=== PATIENT | male | born 1940 | race Caucasian/White ===

== ENCOUNTER 2018-11-10 01:59 | Emergency (ER) | payer MEDICARE, OTHER ==
[~2018-11-10] VITALS: Wt 100.0 kg
[~2018-11-10 01:59] MED LIST: ALIGN PO; BENAZEPRIL PO; BYETTA 10M600 MCG/SY SQ; BYETTA SQ; CALCIUM CITRAT950 MG PO; CALCIUM CITRATE1 TA7 PO; CEPHALEXIN500 M1 PO; DITROPAN XL10 MG PO; FERROUS SU325 MG/TAB PO; FLUOXETINE PO; FOLIC ACID PO; FORTAMET500 M1 PO; FOSAMAX 70MG TA70 MG PO; GLUCOPHAGE1000 MG PO; KLOR-CON 1010 MEQ PO; LANTUS SOLOS100 U/ML SQ; LIPITOR20 MG PO; LOPRESSOR 550 MG/TAB PO; LOTENSIN20 MG PO; LOTREL 10 MG-201 CAP PO; MIRAPEX 0.125MG PO; MIRAPEX0.5 MG PO; NORVASC 10MG10 MG PO; NORVASC 5MG5 MG/TAB PO; PENTASA500 MG PO; PERCOCET 325 MG1 TA2 PO; PREVAGIN PO; PROZAC 20MG20 MG PO; SENEXON8.6 MG PO; SENOKOT S 50 MG1 TAB PO; TRICOR145 MG PO; TYLENOL 325MG325 MG PO; TYLENOL 500MG500 MG PO; VITAMIN C1 TAB PO; VITAMIN C500 MG PO; WELLBUTRIN PO; ZESTORETIC 12.51 TA1 PO; prevagen
[2018-11-10 02:25] LABS: HEMOGLOBIN 11.1 g/dl (13.5-18.0); MEAN CELL VOLUME 93 fl (80.0-100.0); MEAN CORPUSCULAR HEMOGLOBIN 31 pg (27.0-31.0); MEAN CORPUSCULAR HGB CONC 34 g/dl (33.0-37.0); MEAN PLATELET VOLUME 9.3 fl (7.4-10.4); PLATELET COUNT 167 K/mm3 (130-400); RED BLOOD COUNT 3.54 M/mm3 (4.20-5.60); REDCELL DISTRIBUTION WIDTH-CV 12.3 % (11.5-14.5)
[2018-11-10 02:28] LABS: HEMATOCRIT 32.9 % (42.0-52.0)
[2018-11-10 02:30] LABS: INR 1.1 (0.8-3.0); PROTHROMBIN TIME 12.5 SECONDS (9.7-12.8)
[2018-11-10 02:37] LABS: ALANINE AMINOTRANSFERASE 23 U/L (21-72); ALBUMIN 2.9 gm/dL (3.5-5.0); ALCOHOL(ethanol),MEDICAL < 10 mg/dL; ALKALINE PHOSPHATASE 44 U/L (50-136); ANION GAP 7 mmol/L (7-16); AST,SGOT 25 U/L (15-37); BILIRUBIN,TOTAL 0.4 mg/dL (0.0-1.0); BLOOD UREA NITROGEN 22 mg/dL (9-20); CALCIUM 8.1 mg/dL (8.4-10.2); CARBON DIOXIDE 25 mmol/L (22-30); CHLORIDE 111 mmol/L (98-107); CREATINE KINASE 210 U/L (55-170); CREATININE, serum 0.88 (0.66-1.25); GLUCOSE 112 mg/dL (74-106); POTASSIUM 4.1 mmol/L (3.4-5.0); SODIUM 142 mmol/L (137-145); TOTAL PROTEIN 5.4 gm/dL (6.4-8.2)
[2018-11-10 02:48] LABS: TROPONIN-I < 0.012 ng/mL (0.000-0.035)
[2018-11-10 03:05] LABS: BAND 14 % (0-10); BASOPHIL 1 % (0-2); EOSINOPHIL 1 % (0-4); LYMPHOCYTE 23 % (20.0-51.0); METAMYELOCYTE 1 % (0-0); NEUTROPHILS 57 % (42.0-75.2); PLATELET ESTIMATE NORMAL (NORMAL)
[2018-11-10 03:06] LABS: HYPOCHROMIA 1+
[2018-11-10 03:07] LABS: OVALOCYTES 1+
[2018-11-10] MEDS ORDERED: ZESTORETIC 12.51 TA1 PO (03:09)
[2018-11-10] MEDS ORDERED: LANTUS100 U/ML SQ (03:09)
[2018-11-10] MEDS ORDERED: LIPITOR20 MG PO (03:10)
[2018-11-10] MEDS ORDERED: NORVASC 5MG5 MG/TAB PO (03:10)
[2018-11-10] MEDS ORDERED: MIRAPEX0.5 MG PO (03:11)
[2018-11-10] MEDS ORDERED: PROZAC 20MG20 MG PO (03:12)
[2018-11-10] MEDS ORDERED: FOSAMAX 70MG TA70 MG PO (03:12)
[2018-11-10] MEDS ORDERED: KLOR-CON 1010 MEQ PO (03:13)
[2018-11-10] MEDS ORDERED: LOPRESSOR 550 MG/TAB PO (03:13)
[2018-11-10] MEDS ORDERED: COLESTID 1GM1 G PO (03:14)
[2018-11-10] MEDS ORDERED: TYLENOL 500MG500 MG PO (03:14)
[2018-11-10] MEDS ORDERED: CALCIUM CITRAT950 MG PO (03:16)
[2018-11-10] MEDS ORDERED: SENOKOT S 50 MG1 TAB PO (03:16)
[2018-11-10] MEDS ORDERED: PROBIOTIC ACID1 EAC3 PO (03:17)
[2018-11-10] MEDS ORDERED: VITAMIN C500 MG PO (03:17)
[2018-11-10] MEDS ORDERED: BYDUREON B2 MG/0.85 (03:19)
[2018-11-10 03:22] VITALS: BP 117/71; PULSE 81
[2018-11-10 03:54] LABS: ARTERIAL BLD GAS O2 SATURATION 93.4 % (92-100); ARTERIAL BLD GAS TCO2 CT 25.3; ARTERIAL BLOOD GAS HCO3 23.9 meq/L (22-26); ARTERIAL BLOOD GAS PCO2 45.6 mmHg (35-45); ARTERIAL BLOOD GAS PO2 79.8 mmHg (80-100); ARTERIAL BLOOD GAS pH 7.34 (7.35-7.45)
== END 2018-11-10 03:22 | disposition short-term general hospital (02) ==
LOC: COL.ER 01:59 → EDBD 01:59 → COL.ER 03:22
PROVIDERS: Emergency Medicine
DX: S06.360A Traumatic hemorrhage of cerebrum, unspecified, without loss of consciousness, initial encounter (principal); S02.91XA Unspecified fracture of skull, initial encounter for closed fracture; S12.100A Unspecified displaced fracture of second cervical vertebra, initial encounter for closed fracture; S12.500A Unspecified displaced fracture of sixth cervical vertebra, initial encounter for closed fracture; S12.601A Unspecified nondisplaced fracture of seventh cervical vertebra, initial encounter for closed fracture; I10 Essential (primary) hypertension; E11.9 Type 2 diabetes mellitus without complications; Z79.4 Long term (current) use of insulin; J32.9 Chronic sinusitis, unspecified; E78.5 Hyperlipidemia, unspecified; W10.9XXA Fall (on) (from) unspecified stairs and steps, initial encounter; Y92.009 Unspecified place in unspecified non-institutional (private) residence as the place of occurrence of the external cause
CPT/HCPCS: J0330; J2250; J3010; J7030; J7060